=== PATIENT | female | born 1995 | race Caucasian/White ===

== ENCOUNTER 2022-07-14 09:56 | Emergency (ER) | payer OTHER, SELFPAY ==
[2022-07-14 10:02] VITALS: BP 125/61; PULSE 81; RESP 16; TEMP 36.7; O2SAT 100; BMI 29.3
--- NOTE | 2022-07-14 10:20 | PC.NURSE ---
pt reporting right breast pain 11/06. VSS. [place] ethologist used. awaiting provider
--- OUTSIDE RECORDS SUMMARY | 2022-07-14 10:24 | XMS_ITS | Continuity of Care Document ---
:1995 Author Organization [facility] Address [address] [place] [address]- Care Team Providers Name Role Phone Marielena STEIN, Chen Bey Primary Care Physician Encounter [facility] Date(s): 05/24/20 - 06/23/20 [facility] [address] [place] [address]- Encounter Diagnosis Breast pain (Final) - 04/01/20 Attending Physician: Nyla Rivera Admitting Physician: Nyla Rivera Referring Physician: Nyla Rivera Allergies, Adverse Reactions, Alerts No Known Medication Allergies Substance Reaction Severity Status NKA Active Problem List Condition Effective Dates Status Health Status Informant Headache(Confirmed) Active Overweight(Confirmed) Active Social History Social History Type Response Smoking Status Never (less than 100 in life time) entered on: 05/31/19 Sex
--- OUTSIDE RECORDS SUMMARY | 2022-07-14 10:24 | XMS_ITS | Continuity of Care Document ---
:1995 Author Organization [facility] Address [address] [place] [id number]- Care Team Providers Name Role Phone Chen Peguero MD Primary Care Physician Encounter [facility] Date(s): 04/20/21 - 04/20/[address] [address]- Encounter Diagnosis Leg pain (Final) - 04/20/21 Vaginal discharge (Final) - 04/20/21 Discharge Disposition: A-D/C Home Attending Physician: Della Lopes MD Admitting Physician: Della Lopes MD Referring Physician: Not on Staff, Referring MD Allergies, Adverse Reactions, Alerts No Known Medication Allergies Substance Reaction Severity Status NKA Active Immunizations Given and Recorded Vaccine Date Status Refusal Reason Mumps Virus Vaccine 01/17/00 Recorded diphtheria/tetanus/pertussis, acel(DTaP) 06/02/99 Recorde d diphtheria/tetanus/pertussis, acel(DTaP) 05/13/98 Recorde d diphtheria/tetanus/pertussis, acel(DTaP) 03/31/98 Recorde d diphtheria/tetanus/pertussis, acel(DTaP) 03/01/98 Recorde d Measles Virus Vaccine 11/29/98 Recorded Medications Claritin 10 mg oral tablet 10 mg, 1, tablet, By Mouth, Daily, # 30 tablet, Refills 2, Tot. Refills 2, Maintenance, 02/28/21 13:21:00 EDT, Route to Pharmacy Electronically, [facility]/pharmacy #[id number], Partial fill upon patient request ifthe prescription is for a schedule II opioid drug... Start Date: 02/28/21 Status: OrderedDiflucan 150 mg oral tablet 1 tablet = 150 mg, By Mouth, Once, # 1 tablet, 0 Refills, Soft Stop, 04/20/21 14:47:00 EST, Tablet, [facility]/pharmacy #[id number], Partial fill upon patient request if the prescription is for a schedule II opioiddrug., 160, cm, 02/28/21 13:10:00 EDT, Height, 67... Start Date: 04/20/21 Status: Orderedomeprazole 20 mg oral delayed release tablet 1 tablet = 20 mg, By Mouth, Daily, # 30 tablet, 3 Refills, Maintenance, 02/28/21 13:19:00 EDT, CR Tablet, [facility]/pharmacy #[id number], Partial fill upon patient request if the prescription is for a schedule II opioid drug., 160, cm, 02/28/21 13:10:00 EDT, Heig... Start Date: 02/28/21 Status: Ordered Problem List Condition Effective Dates Status Health Status Informant Headache(Confirmed) Active Overweight(Confirmed) Active Vital Signs Most recent to oldest 1 2 3 [Reference Range]: Oxygen Saturation [94-100 100 % 100 % 100 % %] (04/20/21 2:30 PM) (04/20/21 11:25 AM) (04/20/21 11:17 AM) Pulse Rate [55-90 bpm] 71 bpm 70 bpm 71 bpm (04/20/21 2:30 PM) (04/20/21 11:25 AM) (04/20/21 11:17 AM) Blood Pressure 117/63 mm Hg 131/68 mm Hg [90-138/55-84 mm Hg] (04/20/21 2:30 PM) (04/20/21 11:25 AM) Respiratory Rate [16-30 16 br/min 17 br/min br/min] (04/20/21 2:30 PM) (04/20/21 11:25 AM) Temperature [96.8-100.4 98.1 DegF 98.4 DegF DegF] (04/20/21 2:30 PM) (04/20/21 11:25 AM) Mode of Delivery (Oxygen) Room air Room air Room a ir (04/20/21 2:30 PM) (04/20/21 11:25 AM) (04/20/21 11:17 AM) Blood pressure sites Arm, right Arm, right (04/20/21 2:30 PM) (04/20/21 11:25 AM) Temperature Route Oral Oral (04/20/21 2:30 PM) (04/20/21 11:25 AM) Social History Social History Type Response Smoking Status Never (less than 100 in life time) entered on: 05/31/19 Sex
--- OUTSIDE RECORDS SUMMARY | 2022-07-14 10:24 | XMS_ITS | Continuity of Care Document ---
:1995 Author Organization [facility] Address Unavailable , Care Team Providers Name Role Phone Marielena STEIN, Chen Bey Primary Care Physician Encounter [facility] Date(s): 07/04/21 - 07/11/21 [facility] Attending Physician: Fidel Gold MD Referring Physician: Della Curran CNM Allergies, Adverse Reactions, Alerts No Known Allergies Immunizations Given and Recorded Vaccine Date Status [...] 02/28/21 13:21:00 EDT, Route to Pharmacy Electronically, [facility]/pharmacy #[id number], Partial fill upon patient request ifthe prescription is for a schedule II opioid drug... Start Date: 02/28/21 Status: OrderedDiflucan 150 mg oral tablet 1 tablet = 150 mg, By Mouth, Once, # 1 tablet, 0 Refills, Soft Stop, 04/20/21 14:47:00 EST, Tablet, [facility]/pharmacy #[id number], Partial fill upon patient request if the prescription is for a schedule II opioiddrug., 160, cm, 02/28/21 13:10:00 EDT, Height, 67... Start Date: 04/20/21 Status: Orderedomeprazole 20 mg oral delayed release tablet 1 tablet = 20 mg, By Mouth, Daily, # 30 tablet, 3 Refills, Maintenance, 02/28/21 13:19:00 EDT, CR Tablet, [facility]/pharmacy #[id number], Partial fill upon patient request if the prescription is for a schedule II opioid drug., 160, cm, 02/28/21 13:10:00 EDT, Claudio... Start Date: 02/28/21 Status: Ordered Problem List Condition Effective Dates Status Health Status Informant Headache(Confirmed) Active Overweight(Confirmed) Active Vital Signs Most recent to oldest [Reference Range]: 1 Height 160 cm (07/04/21 2:40 PM) Weight 76 kg (07/04/21 2:40 PM) Body Mass Index [18.5-24.99] 29.69 *H* (07/04/21 2:40 PM) Blood Pressure [90-138/55-84 mm Hg] 105/61 mm Hg (07/04/21 2:40 PM) Blood pressure sites Arm, left (07/04/21 2:40 PM) Weight Obtained Via Standing scale (07/04/21 2:40 PM) Social History Social History Type Response Smoking Status Never (less than 100 in life time) entered on: 05/31/19 Sex
--- OUTSIDE RECORDS SUMMARY | 2022-07-14 10:24 | XMS_ITS | Continuity of Care Document ---
:1995 Author Organization [facility] Address [address] [place] [id number]- Care Team Providers Name Role Phone Marielena STEIN, Chen Bey Primary Care Physician Encounter [facility] Date(s): 09/01/21 - 10/10/[address] [address] Attending Physician: La Whitaker NP Admitting Physician: La Whitaker NP Referring Physician: La Whitaker NP Allergies, Adverse Reactions, Alerts No Known Allergies [...] 02/28/21 13:21:00 EDT, Route to Pharmacy Electronically, [facility]/pharmacy #[id number], Partial fill upon patient request ifthe prescription is for a schedule II opioid drug... Start Date: 02/28/21 Status: OrderedDiflucan 150 mg oral tablet 1 tablet = 150 mg, By Mouth, Once, # 1 tablet, 0 Refills, Soft Stop, 04/20/21 14:47:00 EST, Tablet, [facility]/pharmacy #[id number], Partial fill upon patient request if the prescription is for a schedule II opioiddrug., 160, cm, 02/28/21 13:10:00 EDT, Height, 67... Start Date: 04/20/21 Status: Orderedomeprazole 20 mg oral delayed release tablet 1 tablet = 20 mg, By Mouth, Daily, # 30 tablet, 3 Refills, Maintenance, 02/28/21 13:19:00 EDT, CR Tablet, [facility]/pharmacy #[id number], Partial fill upon patient request if the prescription is for a schedule II opioid drug., 160, cm, 02/28/21 13:10:00 EDT, Heig... Start Date: 02/28/21 Status: OrderedReadi-Cat 2 oral suspension See Instructions, 2 bottles as per recommendations of radiology 1 evening before [address], # 2 pack/packet, 0 Refills, Maintenance, 08/16/21 16:03:00 EDT, [facility]/pharmacy #[id number], Partial fill upon patient request if the prescription is for a sc... Start Date: 08/16/21 Status: Ordered Problem List Condition Effective Dates Status Health Status Informant Headache(Confirmed) Active Overweight(Confirmed) Active Social History Social History Type Response Smoking Status Never (less than 100 in life time) entered on: 05/31/19 Sex
--- OUTSIDE RECORDS SUMMARY | 2022-07-14 10:24 | XMS_ITS | Continuity of Care Document ---
:1995 Author Organization [facility] Address Unavailable , Care Team Providers Name Role Phone Chen Peguero MD Primary Care Physician Encounter [facility] Date(s): 07/04/21 - 08/03/21 [facility] Attending Physician: Nyla Rivera Admitting Physician: AdmtrNyla Referring Physician: Admtr, Ar8 Allergies, Adverse Reactions, Alerts No Known Allergies [...] 02/28/21 13:21:00 EDT, Route to Pharmacy Electronically, [facility]/pharmacy #[id number], Partial fill upon patient request ifthe prescription is for a schedule II opioid drug... Start Date: 02/28/21 Status: OrderedDiflucan 150 mg oral tablet 1 tablet = 150 mg, By Mouth, Once, # 1 tablet, 0 Refills, Soft Stop, 04/20/21 14:47:00 EST, Tablet, [facility]/pharmacy #[id number], Partial fill upon patient request if the prescription is for a schedule II opioiddrug., 160, cm, 02/28/21 13:10:00 EDT, Height, 67... Start Date: 04/20/21 Status: Orderedomeprazole 20 mg oral delayed release tablet 1 tablet = 20 mg, By Mouth, Daily, # 30 tablet, 3 Refills, Maintenance, 02/28/21 13:19:00 EDT, CR Tablet, [facility]/pharmacy #[id number], Partial fill upon patient request if [...]
--- OUTSIDE RECORDS SUMMARY | 2022-07-14 10:24 | XMS_ITS | Continuity of Care Document ---
:1995 Author Organization [facility] Address [address] [place] [address]- Care Team Providers Name Role Phone Chen Peguero MD Primary Care Physician Encounter [facility] Date(s): 06/04/19 - 06/04/[address] [address]- [facility] Attending Physician: Chen Peguero MD Allergies, Adverse Reactions, Alerts No Known Medication Allergies Medications gabapentin 100 mg oral capsule 100 mg, 1, capsule, By Mouth, 3 times a day, # 90 capsule, Refills 0, Tot. Refills 0, Maintenance, 06/04/19 8:44:00 EST, Route to Pharmacy Electronically, [facility]/pharmacy #[id number], 164, cm, 06/04/19 8:24:00 EST, Height, 72, kg, 05/31/19 13:42:00 EST, Dry We... Start Date: 06/04/19 Status: Ordered Problem List Condition Effective Dates Status Health Status Informant Headache(Confirmed) Active Overweight(Confirmed) Active Social History Social History Type Response Smoking Status Never (less than 100 in life time) entered on: 05/31/19 Sex
--- OUTSIDE RECORDS SUMMARY | 2022-07-14 10:24 | XMS_ITS | Continuity of Care Document ---
:1995 Author Organization [facility] Address [address] [place] [address]- Care Team Providers Name Role Phone Chen Peguero MD Primary Care Physician Encounter [facility] Date(s): 12/01/21 - 12/01/[address] [address]- Encounter Diagnosis Chest pain, non-cardiac (Final) - 12/01/21 Discharge Disposition: A-D/C Home Attending Physician: Victoria Borges MD Admitting Physician: Victoria Borges MD Referring Physician: Not on Staff, Referring MD Allergies, Adverse Reactions, Alerts No Known Allergies Immunizations Given and Recorded Vaccine Date Status Refusal Reason Mumps Virus Vaccine 01/17/00 Recorded diphtheria/tetanus/pertussis, acel(DTaP) 06/02/99 Recorde d diphtheria/tetanus/pertussis, acel(DTaP) 05/13/98 Recorde d diphtheria/tetanus/pertussis, acel(DTaP) 03/31/98 Recorde d diphtheria/tetanus/pertussis, acel(DTaP) 03/01/98 Recorde d Measles Virus Vaccine 11/29/98 Recorded Medications acetaminophen 325 mg oral tablet 975 mg, 3, tablet, By Mouth, Every 6 hours, PRN, for 7 days, # 84 tablet, Refills 0, Tot. Refills 0,Acute 12/08/21 15:05:00 EDT, Pain , Moderate, 12/01/21 15:05:00 EDT, Route to Pharmacy Electronically, [facility]/pharmacy #[id number], Partial fill upon patient r... Start Date: 12/01/21 Stop Date: 12/08/21 Status: Orderedamoxicillin 875 mg oral tablet 1 tablet = 875 mg, By Mouth, 2 times a day, for 5 days, # 10 tablet, 0 Refills, Acute 12/06/21 15:05:00 EDT, 12/01/21 15:05:00 EDT, Tablet, [facility]/pharmacy #[id number], Partial fill upon patient request if the prescription is for a schedule II opioid drug., 16... Start Date: 12/01/21 Stop Date: 12/06/21 Status: OrderedClaritin 10 mg oral tablet 10 mg, 1, tablet, By Mouth, Daily, # 30 tablet, Refills 2, Tot. Refills 2, Maintenance, 02/28/21 13:21:00 EDT, Route to Pharmacy Electronically, [facility]/pharmacy #[id number], Partial fill upon patient request ifthe prescription is for a schedule II opioid drug... Start Date: 02/28/21 Status: OrderedDiflucan 150 mg oral tablet 1 tablet = 150 mg, By Mouth, Once, # 1 tablet, 0 Refills, Soft Stop, 04/20/21 14:47:00 EST, Tablet, [facility]/pharmacy #[id number], Partial fill upon patient request if the prescription is for a schedule II opioiddrug., 160, cm, 02/28/21 13:10:00 EDT, Height, 67... Start Date: 04/20/21 Status: Orderedibuprofen 200 mg oral tablet 600 mg, 3, tablet, By Mouth, Every 6 hours, PRN, for 3 days, # 50 tablet, Refills 0, Tot. Refills 0,Acute 12/04/21 15:05:00 EDT, for pain, 12/01/21 15:05:00 EDT, Route to Pharmacy Electronically, [facility]pharmacy #[id number], Partial fill upon patient request... Start Date: 12/01/21 Stop Date: 12/04/21 Status: Orderedomeprazole 20 mg oral delayed release tablet 1 tablet = 20 mg, By Mouth, Daily, # 30 tablet, 3 Refills, Maintenance, 02/28/21 13:19:00 EDT, CR Tablet, [facility]/pharmacy #[id number], Partial fill upon patient request if [...] Health Status Informant Headache(Confirmed) Active Overweight(Confirmed) Active Results Radiology Reports Exam Date Time Procedure Performing Provider Status 12/01/21 2:06 PM Chest 2 Views Frontal and Lat Michelle Corona; Auth (Verified) Notes:(Chest 2 Views Frontal and Lat) Reason For Exam: Shortness of Breath, Fever;Other:RESULT: Chest 2 Views Frontal and Lat Chest 2 Views Frontal and Lat Hx of Present Illness: Cough, right sided chest pain radiating to back; Reason: Other:; Shortness ofBreath, Fever; Clinical Question(s): Pneumonia COMPARISON: 12/09/2019 FINDINGS: No acute cardiopulmonary process IMPRESSION: No acute abnormality. Normal exam WSN: [id number] Ordering Physician: Victoria Borges Dictated By: Salvatore Pérez MD Dictated Date/Time: 12/01/21 2:23 pm Reviewed By: Salvatore Pérez MD Signed By: Salvatore Pérez MD Signed Date/Time: 12/01/21 2:23 pm Transcribed By: RAMA Transcribed Date/Time: 12/01/21 2:22 pm Vital Signs Most recent to oldest [Reference 1 2 3 Range]: Oxygen Saturation [94-100 %] 100 % 100 % 100 % (12/01/21 2:25 PM) (12/01/21 11:51 AM) (12/01/21 11:44 AM) Pulse Rate [55-90 bpm] 60 bpm 79 bpm 76 bpm (12/01/21 2:25 PM) (12/01/21 11:51 AM) (12/01/21 11:44 AM) Blood Pressure [90-138/55-84 mm 122/67 mm Hg 132/64 mm Hg Hg] (12/01/21 2:25 PM) (12/01/21 11:51 AM) Respiratory Rate [16-30 br/min] 18 br/min 18 br/min (12/01/21 2:25 PM) (12/01/21 11:51 AM) Temperature [96.8-100.4 DegF] 98.2 DegF 98.3 DegF (12/01/21 2:25 PM) (12/01/21 11:51 AM) Mode of Delivery (Oxygen) Room air Room air Room a ir (12/01/21 2:25 PM) (12/01/21 11:51 AM) (12/01/21 11:44 AM) Blood pressure sites Arm, right (12/01/21 2:25 PM) Temperature Route Oral Oral (12/01/21 2:25 PM) (12/01/21 11:51 AM) Social History Social History Type Response Smoking Status Never (less than 100 in life time) entered on: 05/31/19 Sex
--- OUTSIDE RECORDS SUMMARY | 2022-07-14 10:24 | XMS_ITS | Continuity of Care Document ---
:1995 Author Organization [facility] Address [address] [place] [phone]- Care Team Providers Name Role Phone Marielena STEIN, Chen Bey Primary Care Physician Encounter [facility] Date(s): 05/29/19 - 05/29/[address] [address]- [facility] Discharge Disposition: A-D/C Home Attending Physician: Judah Ernst DO Admitting Physician: Judah Ernst DO Referring Physician: Not on Staff, Referring MD Allergies, Adverse Reactions, Alerts No Known Medication Allergies Medications ibuprofen 600 mg oral tablet 600 mg, 1, tablet, By Mouth, 4 times a day, PRN, for 5 days, # 20 tablet, Refills 0, Tot. Refills 0,Acute 06/03/19 15:15:00 EST, for pain, 05/29/19 15:15:00 EST, Print Requisition Start Date: 05/29/19 Stop Date: 06/03/19 Status: Ordered Vital Signs Most recent to oldest 1 2 3 [Reference Range]: Height 164 cm (05/29/19 10:30 AM) Weight 72.7 kg 72.7 kg (05/29/19 10:30 AM) (05/29/19 10:25 AM) Oxygen Saturation [94-100 %] 100 % 100 % 100 % (05/29/19 2:09 PM) (05/29/19 10:25 AM) (05/29/19 10 :19 AM) Pulse Rate [55-90 bpm] 65 bpm 73 bpm 79 bpm (05/29/19 2:09 PM) (05/29/19 10:25 AM) (05/29/19 10 :19 AM) Blood Pressure [90-138/55-84 124/68 mm Hg 131/74 mm Hg mm Hg] (05/29/19 2:09 PM) (05/29/19 10:25 AM) Respiratory Rate [16-30 18 br/min 18 br/min br/min] (05/29/19 2:09 PM) (05/29/19 10:25 AM) Temperature [96.8-100.4 98.2 DegF 98.1 DegF DegF] (05/29/19 2:09 PM) (05/29/19 10:25 AM) Mode of Delivery (Oxygen) Room air Room air (05/29/19 2:09 PM) (05/29/19 10:25 AM) Blood pressure sites Arm, right Arm, left (05/29/19 2:09 PM) (05/29/19 10:25 AM) Temperature Route Oral Oral (05/29/19 2:09 PM) (05/29/19 10:25 AM) Dry Weight 72.7 kg 72.7 kg (05/29/19 10:30 AM) (05/29/19 10:25 AM) Weight Obtained Via Standing scale (05/29/19 10:25 AM) Dry Weight Obtained Via Standing scale (05/29/19 10:25 AM)
--- NOTE | 2022-07-14 10:33 | ED.GENADULT ---
HPI - General Adult General Chief complaint: General Medical Stated complaint: pain in R breast Time Seen by Provider: 07/14/22 10:12 History of Present Illness HPI narrative: Patient complains of painful lump in right breast that is been bothering her for several days, she had a similar problem a year ago which was and infection Right now she denies any redness denies any discharge denies any fever no vomiting, she is not nursing Related Data Previous Rx's Medication Instructions Recorded ibuprofen 600 mg tablet 600 mg PO Q6H PRN pain #20 tabs 07/14/22 Allergies Allergy/AdvReac Type Severity Reaction Status Date / Time No Known Allergies Allergy Verified 07/14/22 10:02 [facility] Past Medical History Source: nursing notes reviewed Social History Social History Alcohol intake: never Smoked in Last 30 Days: No Use of substances other than those prescribed or required for medical reasons: No Advance Directives: No Advance Directives Information Provided: Yes Patient : No Physical Exam ED Vital Signs: Vital Signs - 24 hr 07/14/22 10:02 Temperature 98.1 F Pulse Rate 81 Respiratory Rate 16 Blood Pressure 125/61 Pulse Oximetry 100 Oxygen Delivery Method Room Air BMI result Body Mass Index 29.3 General appearance no acute distress comfortable cooperative, speaks Romanian and exam and history done with java core developer Breast exam, the right breast is normal in appearance there is no redness no obvious swelling no discharge, no fluctuance There is a mass in the right outer upper quadrant that is mobile and tender not fixed No axillary nodes palpated Abdomen soft nontender Extremities range of motion times worse Skin no rashes Course Course Course Narrative: Patient is advised through java core developer that this mass needs to be evaluated with a mammogram and possible biopsy and that she will need to follow with either her doctor or a web consultant, she does have a web consultant She is also given a referral to surgeon Dr. damon for further evaluation of right-sided breast mass She is informed that there is a possibility of malignancy so that this does need to be followed up within coming weeks Discharge Plan Discharge Clinical Impression: Breast lump or mass Patient Disposition: Home, Self-Care Additional Instructions: You have a mobile lump or mass in the right breast In young females these are usually benign but in rare cases they can be a cancer So you need to get a mammogram and see your web consultant, or surgeon, or primary care doctor to make sure you have appropriate follow-up There is no sign of an abscess or a skin infection right now Return any concerns Prescriptions: New ibuprofen 600 mg tablet 600 mg PO Q6H PRN (Reason: pain) Qty: 20 0RF Referrals: Beto Celeste MD [Physician] - (Right breast mobile mass) Stand Alone Forms: Work/School Release Interventions: ED Discharge Assessment Last Done: 07/14/22 10:47
== END 2022-07-14 10:48 | disposition home or self-care (01) ==
PROVIDERS: Emergency Provider Emergency Medicine
DX: N63.0 Unspecified lump in unspecified breast (principal)
CPT/HCPCS: 99283; 99284